=== PATIENT | female | born 1975 | race Caucasian/White ===

== ENCOUNTER 2017-01-02 09:10 | Emergency (ER) | payer MEDICAID ==
--- NOTE | 2017-01-02 09:33 | EDPHY ---
H & P Stated Complaint: L upper/lower abd pain vomit/diarrhea since saturday Source: Patient - Personal History LMP (Females 10-55): 15-21 Days Ago Current Tetanus/Diphtheria Vaccine: Unsure Current Tetanus Diphtheria and Acellular Pertussis (TDAP): Unsure - Medical/Surgical History Hx Asthma: No Hx Chronic Respiratory Disease: No Hx Diabetes: No Hx Cardiac Disease: No Hx Renal Disease: No Hx Cirrhosis: No Hx Alcoholism: No Hx HIV/AIDS: No Hx Splenectomy or Spleen Trauma: No - Social History Smoking Status: Current every day smoker Time Seen by Provider: 01/02/17 09:21 HPI/ROS: CHIEF COMPLAINT: Diarrhea abdominal pain HISTORY OF PRESENT ILLNESS: This is a 41-year-old female presenting to the emergency department complaining of left side abdominal cramping onset Saturday with loose bowels. 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 On Saturday nausea vomiting intermittently with continued loose stools and noticed blood in her diarrhea. Has been intermittently able to tolerate fluids and bland foods, but gets nauseous when she has intermittent cramping. Patient also reported finishing Augmentin for a tooth infection 7-8 days ago, she states she did not have any problems with the antibiotic. Denies any other complaint REVIEW OF SYSTEMS: Constitutional: No fever, no chills. Decreased p.o. intake Eyes: No discharge. No blurred vision ENT: No sore throat. Cardiovascular: No chest pain, no palpitations. Respiratory: No cough, no shortness of breath. Gastrointestinal: abdominal pain, intermittent nausea vomiting. Diarrhea Genitourinary: No hematuria. Musculoskeletal: No back pain. Skin: No rashes. Neurological: No headache. (Leslie Garcia) - Physical Exam Exam: General Appearance: Alert, no distress. Non-ill appearing Eyes: Pupils equal and round no pallor or injection. ENT, Mouth: Mucous membranes moist. Respiratory: There are no retractions, lungs are clear to auscultation. Cardiovascular: Regular rate and rhythm. Gastrointestinal: Abdomen is soft nondistended, left lower quadrant tenderness on palpation, no masses, bowel sounds hyperactive. Rectal exam 2 small external non-thrombosed hemorrhoids, no internal hemorrhoids noted on palpation , no gross blood Neurological: No focal deficits Skin: Warm and dry, no rashes. Musculoskeletal: Neck is supple nontender. Extremities: symmetrical, full range of motion. Psychiatric: Patient is oriented X 3, acting appropriate (Leslie Garcia) Constitutional: Initial Vital Signs Temperature (C) 36.5 C 01/02/17 09:13 Heart Rate 67 01/02/17 09:13 Respiratory Rate 16 01/02/17 09:13 Blood Pressure 105/75 01/02/17 09:13 O2 Sat (%) 97 01/02/17 09:13 O2 Delivery Mode Room Air Allergies/Adverse Reactions: Opioids - Morphine Analogues Allergy (Verified 01/02/17 09:13) Home Medications: Medication Instructions Recorded Vancomycin [Vancomycin (*)] 250 mg PO Q6 #40 cap 01/02/17 metroNIDAZOLE [Flagyl 250 mg (*)] 250 mg PO Q6 #40 tab 01/02/17 Medical Decision Making - Diagnostics Imaging Results: Imaging Impressions Abdomen CT 01/02/17 10:24 Impression: 1. Mild pancolitis. Query C. Difficile colitis. 2. Trace free fluid in the cul-de-sac. No abscess, bowel obstruction or pneumoperitoneum. 3. No ureteral calculi or hydroureteronephrosis. Findings discussed with Emergency Department physician, Leslie Garcia, [employer] on January 02, 2017 at 1101 hours. ED Course/Re-evaluation: The patient was evaluated and managed by the [employer]. My cosignature indicates that I reviewed the chart and I agree with the findings and plan of care as documented. I am the secondary supervising physician. (Yanira Walsh) Discussed ED plan of care with patient: CBC, BMP, hCG, stool guaiac. 1030: Discussed results with patient, mild li colitis, stool sent for ova & parasite and C diff. Patient agreed with plan. 1300: Spoke with lab patient positive for C diff, results given to patient. First initial dose of vancomycin given here, prescription of vancomycin and Flagyl sent with patient. Patient to follow up with her primary care provider [facility] 1315: Discussed all discharge instructions with patient, discharge home---> stable. (Leslie Garcia) Differential Diagnosis: Other differential diagnosis considered but not limited to diverticulitis, abdominal mass and gastritis (Leslie Garcia) - Data Points Laboratory Results: Laboratory Results 01/02/17 09:40 01/02/17 09:40 01/02/17 01/02/17 01/02/17 11:30 09:40 09:40 WBC RBC Hgb Hct MCV MCH MCHC RDW Plt Count MPV Neut % (Auto) Lymph % (Auto) [place] % (Auto) Eos % (Auto) Baso % (Auto) Nucleat RBC Rel Count Absolute Neuts (auto) Absolute Lymphs (auto) Absolute Monos (auto) Absolute Eos (auto) Absolute Basos (auto) Absolute Nucleated RBC Immature Gran % Immature Gran # Sodium 141 mEq/L mEq/L (134-144) Potassium 4.1 mEq/L mEq/L (3.5-5.2) Chloride 108 mEq/L mEq/L (97-110) Carbon Dioxide 19 mEq/l L mEq/l (22-31) Anion Gap 14 mEq/L mEq/L (8-16) BUN 10 mg/dL mg/dL (7-23) Creatinine 0.7 mg/dL mg/dL (0.6-1.0) Estimated GFR > 60 Glucose 104 mg/dL H mg/dL (70-100) Calcium 9.9 mg/dL mg/dL (8.5-10.4) Beta HCG, Qual NEGATIVE Urine Color Urine Appearance Urine pH Ur Specific [place] Urine Protein Urine Ketones Urine Blood Urine Nitrate Urine Bilirubin Urine Urobilinogen Ur Leukocyte Esterase Urine RBC Urine WBC Ur Epithelial Cells Urine Bacteria Urine Mucus Urine Glucose Stool Concentration TNP Stool Occult Bld Scrn Stool Ova & Parasites REJ Parasite Trichrome TNP C. difficile Tox (PCR) TNP Direct Microscop Exam TNP 01/02/17 01/02/17 01/02/17 09:40 09:35 09:17 WBC 14.02 10^3/uL H 10^3/uL (3.80-9.50) RBC 5.66 10^6/uL H 10^6/uL (4.18-5.33) Hgb 18.2 g/dL H g/dL (12.6-16.3) Hct 51.6 % H % (38.0-47.0) MCV 91.2 fL fL (81.5-99.8) MCH 32.2 pg pg (27.9-34.1) MCHC 35.3 g/dL g/dL (32.4-36.7) RDW 12.0 % % (11.5-15.2) Plt Count 263 10^3/uL 10^3/uL (150-400) MPV 9.2 fL fL (8.7-11.7) Neut % (Auto) 83.8 % H % (39.3-74.2) Lymph % (Auto) 9.0 % L % (15.0-45.0) [place]les % (Auto) 6.1 % % (4.5-13.0) Eos % (Auto) 0.1 % L % (0.6-7.6) Baso % (Auto) 0.4 % % (0.3-1.7) Nucleat RBC Rel Count 0.0 % % (0.0-0.2) Absolute Neuts (auto) 11.76 10^3/uL H 10^3/uL (1.70-6.50) Absolute Lymphs (auto) 1.26 10^3/uL 10^3/uL (1.00-3.00) Absolute Monos (auto) 0.85 10^3/uL H 10^3/uL (0.30-0.80) Absolute Eos (auto) 0.01 10^3/uL L 10^3/uL (0.03-0.40) Absolute Basos (auto) 0.06 10^3/uL 10^3/uL (0.02-0.10) Absolute Nucleated RBC 0.00 10^3/uL 10^3/uL (0-0.01) Immature Gran % 0.6 % % (0.0-1.1) Immature Gran # 0.08 10^3/uL 10^3/uL (0.00-0.10) Sodium Potassium Chloride Carbon Dioxide Anion Gap BUN Creatinine Estimated GFR Glucose Calcium Beta HCG, Qual Urine Color BEATA Urine Appearance TURBID Urine pH 5.0 (5.0-7.5) Ur Specific [place] 1.030 (1.002-1.030) Urine Protein 1+ H (NEGATIVE) Urine Ketones 1+ H (NEGATIVE) Urine Blood NEGATIVE (NEGATIVE) Urine Nitrate NEGATIVE (NEGATIVE) Urine Bilirubin NEGATIVE (NEGATIVE) Urine Urobilinogen NEGATIVE EU EU (0.2-1.0) Ur Leukocyte Esterase NEGATIVE (NEGATIVE) Urine RBC 15-25 /hpf H /hpf (0-3) Urine WBC 5-10 /hpf H /hpf (0-3) Ur Epithelial Cells 1+ /lpf /lpf (NONE-1+) Urine Bacteria NONE SEEN /hpf /hpf (NONE SEEN) Urine Mucus 4+ /lpf H /lpf (NONE-1+) Urine Glucose NEGATIVE (NEGATIVE) Stool Concentration Stool Occult Bld Scrn POSITIVE H (NEGATIVE) Stool Ova & Parasites Parasite Trichrome C. difficile Tox (PCR) Direct Microscop Exam Microbiology Results: MICROBIOLOGY 01/02/17 11:30 Stool Gastrointestinal Tract Panel (PCR) - Final Clostridium Difficile Detected Medications Given: Discontinued Medications Sodium Chloride (Ns) 1,000 mls @ 0 mls/hr IV ONCE ONE PRN Reason: Wide Open Stop: 01/02/17 09:55 Last Admin: 01/02/17 09:55 Dose: 1,000 mls Prednisone (Prednisone) 60 mg PO ONCE ONE Stop: 01/02/17 12:49 Last Admin: 01/02/17 13:04 Dose: 60 mg Vancomycin HCl (Vancocin Oral Liquid) 125 mg PO ONCE STA PRN Reason: Protocol Stop: 01/02/17 13:10 Last Admin: 01/02/17 13:50 Dose: 125 mg Departure - Departure Disposition: Home, Routine, Self-Care Clinical Impression: Pancolitis, C. difficile colitis Diarrhea Qualifiers: Diarrhea type: unspecified type Qualified Code(s): R19.7 - Diarrhea, unspecified Condition: Good Instructions: Clostridium Difficile Infection (ED), Colitis (ED) Referrals: NONE *PRIMARY CARE P,. [Primary Care Provider] - As per Instructions [facility],. [Clinic] - As per Instructions Prescriptions: metroNIDAZOLE [Flagyl 250 mg (*)] 250 mg PO Q6 #40 tab Vancomycin [Vancomycin (*)] 250 mg PO Q6 #40 cap
[2017-01-02 09:50] LABS: % IMMATURE GRANULYOCYTES 0.6 % (0.0-1.1); ABSOLUTE IMMATURE GRANULOCYTES 0.08 10^3/uL (0.00-0.10); ADD DIFF? NO; ADD MORPH? NO; ADD SCAN? NO; ATYPICAL LYMPHOCYTE FLAG 10 (0-99); FRAGMENT RBC FLAG 0 (0-99); HEMATOCRIT 51.6 % (38.0-47.0); HEMOGLOBIN 18.2 g/dL (12.6-16.3); LEFT SHIFT FLG 0 (0-99); LIPEMIA HEMOLYSIS FLAG 90 (0-99); MEAN CELL HEMOGLOBIN 32.2 pg (27.9-34.1); MEAN CELL HEMOGLOBIN CONCENTR. 35.3 g/dL (32.4-36.7); MEAN CELL VOLUME 91.2 fL (81.5-99.8); MEAN PLATELET VOLUME 9.2 fL (8.7-11.7); PLATELET CLUMPS FLAG 20 (0-99); PLATELET COUNT 263 10^3/uL (150-400); RED BLOOD CELL COUNT 5.66 10^6/uL (4.18-5.33)
[2017-01-02] MEDS ORDERED: NS 1,000 ML IV ONE (09:54)
[2017-01-02 10:17] LABS: ANION GAP 14 mEq/L (8-16); CALCIUM 9.9 mg/dL (8.5-10.4); CARBON DIOXIDE 19 mEq/l (22-31); CHLORIDE 108 mEq/L (97-110); CREATININE 0.7 mg/dL (0.6-1.0); GLOMERULAR FILTRATION RATE > 60; GLUCOSE 104 mg/dL (70-100); POTASSIUM 4.1 mEq/L (3.5-5.2); SODIUM 141 mEq/L (134-144)
[2017-01-02] MEDS ORDERED: IOPAMIDOL (ISOVUE-300) 100 ML BTL ONE (10:31)
[2017-01-02 11:35] LABS: COLOR AMBER; LEUKOCYTE ESTERASE,URINE NEGATIVE (NEGATIVE); NITRITE,URINE NEGATIVE (NEGATIVE)
[2017-01-02 11:58] LABS: BACTERIA NONE SEEN /hpf (NONE SEEN); MUCUS 4+ /lpf (NONE-1+); RBC,URINE 15-25 /hpf (0-3)
[2017-01-02] MEDS ORDERED: predniSONE 20 MG TAB PO ONE (12:48)
[2017-01-02 13:05] VITALS: RESP 17; O2SAT 98
[2017-01-02] MEDS ORDERED: VANCOMYCIN 125 MG/2.5 ML UDL PO STA (13:09)
[2017-01-02 14:26] VITALS: BP 99/64; PULSE 69; TEMP 98.8
== END 2017-01-02 14:25 | disposition home or self-care (01) ==
DX: A04.7 Enterocolitis due to Clostridium difficile (principal); K51.00 Ulcerative (chronic) pancolitis without complications; F17.200 Nicotine dependence, unspecified, uncomplicated
CPT/HCPCS: Q9967